=== PATIENT | female | born 1970 | race Caucasian/White ===

== ENCOUNTER 2020-01-08 18:09 | Emergency (ER) | payer OTHER ==
[~2020-01-08] VITALS: Ht 167.6 cm; Wt 74.8 kg
[2020-01-08 19:09] LABS: INFLUENZA A ANTIGEN Negative (Negative); INFLUENZA B ANTIGEN Negative (Negative)
[2020-01-08 19:11] LABS: ABSOLUTE BASOPHILS 0.1 thou/uL (0.0-0.2); ABSOLUTE EOSINOPHILS 0.4 thou/uL (0.0-0.7); ABSOLUTE LYMPHOCYTES 4.4 thou/uL (0.8-5.3); ABSOLUTE MONOCYTES 0.6 thou/uL (0.0-1.2); ABSOLUTE NEUTROPHILS 5.9 thou/uL (1.6-8.1); BASOPHILS 0.9 %; EOSINOPHILS 3.4 %; HEMATOCRIT 47.8 % (37.0-47.0); LYMPHOCYTES 38.3 %; MCH 33.4 pg (26.0-34.0); MCHC 35.7 g/dL (28.0-37.0); MCV 93.8 fL (80.0-100.0); MONOCYTES 5.5 %; MPV 6.9 fl. (7.2-11.1); NUCLEATED RBCS 0 /100WBC; PLATELET COUNT* 271 thou/uL (150-400); POLYS 51.9 %; RBC 5.09 mil/uL (4.20-5.00); RDW-CV 13.4 % (10.5-14.5); WBC 11.4 thou/uL (4.0-11.0)
[2020-01-08 19:18] LABS: CALCIUM 9.3 mg/dL (8.5-10.1); CREATININE 0.7 mg/dL (0.6-1.3); POTASSIUM 3.8 mmol/L (3.5-5.1)
[2020-01-08 19:23] LABS: ALBUMIN 3.8 g/dL (3.4-5.0); TOTAL BILIRUBIN 0.1 mg/dL (<0.1-1.0); TOTAL PROTEIN 7.2 g/dL (6.4-8.2)
[2020-01-08] MEDS ORDERED: PREDNISONE 20 M20 MG PO (20:22)
[2020-01-08] MEDS ORDERED: PROAIR HFA8.5 GM INH (20:22)
[2020-01-08] MEDS ORDERED: ZPAK PO (20:22)
[2020-01-08] MEDS ORDERED: NYSTATIN 100,0015 G1 TOP (20:24)
[2020-01-08 20:56] VITALS: BP 146/97
--- NOTE | 2020-01-09 16:46 | EKG ---
[place] [address] ELECTROCARDIOGRAM REPORT Name: RICHARD SOLANO Joey Room: [facility]#: [id number] Admission: 01/08/20 Attend Phys: Discharge: 01/08/20 Date of : 72 Date of Service: 01/08/201933 Report #: [id number] THIS REPORT FOR: //name// [facility] ED Test Date: 2020-01-08 Test Time: 19:34:37 Pat Name: RICHARD SOLANO Department: Room: Gender: Digital Product Specialist: [facility] : 1970 Requested By: Richi Michaud Order Number: [id number] MD: Lorenzo Hale Measurements Intervals [place] Rate: 88 P: 50 WI: 142 QRS: 64 QRSD: 86 T: 53 QT: 360 QTc: 436 Interpretive Statements Sinus rhythm No previous ECG available for comparison Electronically Signed On 01-09-2020 16:44:58 CDT by Lorenzo Hale [email or web address] <ELECTRONICALLY SIGNED> By: Lorenzo Hale MD, [facility] 01/09/20 1644 33 33 Lorenzo Hale MD, FACC /EPI
== END 2020-01-08 20:58 | disposition home or self-care (01) ==
LOC: M.ERS 18:09
PROVIDERS: Physician Assistant
DX: J44.1 Chronic obstructive pulmonary disease with (acute) exacerbation (principal); R21 Rash and other nonspecific skin eruption; I10 Essential (primary) hypertension; F17.210 Nicotine dependence, cigarettes, uncomplicated; Z90.710 Acquired absence of both cervix and uterus